=== PATIENT | female | born 1975 | race Caucasian/White ===

== ENCOUNTER 2022-02-07 11:32 | Inpatient (IN) | payer BC, OTHER ==
[~2022-02-07] VITALS: Ht 175.3 cm; Wt 72.4 kg
[2022-02-07] MEDS ORDERED: ENOXAPARIN SOD 100 MG/1 ML SYRINGE SC ONE (12:30)
[2022-02-07 13:24] LABS: Basophils # (auto) 0.1 10 ^3/uL (0-0.2); Eosinophils # (auto) 0.3 10 ^3/uL (0-0.8); Eosinophils % (auto) 2.5 % (0.0-7.0); Lymphocytes # (auto) 1.3 10 ^3/uL (0.4-5.4); Monocytes # (auto) 0.6 10 ^3/uL (0-1.3); Red Cell Distribution Width 18.3 % (11.8-14.3)
[2022-02-07 13:26] LABS: Hematocrit 27.9 % (36.0-46.0); Hemoglobin 8.7 g/dL (12.2-16.2); Mean Corpuscular Hemoglobin 21.1 pg (28.0-32.0); Mean Corpuscular Volume 68.2 fL (80.0-100.0); Monocytes % (auto) 5.6 % (0.0-12.0); Neutrophils # (auto) 7.9 10 ^3/uL (1.6-8.6); Neutrophils % (auto) 77.9 % (37.0-80.0); Red Blood Cells 4.09 10^6/uL (4.0-5.20); White Blood Cell 10.1 10^3/uL (4.4-10.8)
[2022-02-07 13:36] LABS: Urine Bacteria NONE SEEN /hpf (None Seen); Urine Blood TRACE /uL (Negative); Urine Specific Gravity 1.007 (1.001-1.035); Urine WBC 10 /hpf (0 - 5)
[2022-02-07 13:51] LABS: BUN/Creatinine Ratio 14.8; Potassium 4.1 mmol/L (3.5-5.1)
[2022-02-07 13:54] LABS: Bilirubin, Total 0.1 mg/dL (0.2-1.0); Total Protein 7.7 g/dL (6.4-8.2)
[2022-02-07] MEDS ORDERED: IOHEXOL 350 MG/ML 100ML IJ ONE (14:24)
[2022-02-07] MEDS ORDERED: levoFLOXacin 500MG 100 ML IV ONE (17:15)
[2022-02-07] MEDS ORDERED: NITROGLYCERIN 0.4 MG SL TAB SL PRN (17:45)
[2022-02-07] MEDS ORDERED: MORPHINE SULFATE INJ 2 MG/ml SYRG IV PRN (17:45)
[2022-02-07] MEDS ORDERED: ONDANSETRON HCL 4 MG/2 ML VIAL IV PRN (17:45)
[2022-02-07] MEDS ORDERED: TRAM50TA2 PO (18:19)
[2022-02-07] MEDS ORDERED: GABA300C10 PO (18:19)
[2022-02-07 19:08] LABS: INR 0.97 (0.9-1.15)
[2022-02-07] MEDS ORDERED: CEFEPIME 1GM/ 50ML 50 ML IV SCH (22:00)
[2022-02-07 22:40] VITALS: BP 118/79
[2022-02-07] MEDS: traMADol HCL 50 MG TAB PO PRN (22:41)
[2022-02-07] MEDS: ENOXAPARIN SOD 80 MG/0.8ML SYRINGE SC SCH (22:41)
[2022-02-07] MEDS: GABAPENTIN 300 MG CAP PO SCH (22:41)
[2022-02-08] MEDS: traMADol HCL 50 MG TAB PO PRN (06:04)
[2022-02-08] MEDS: GABAPENTIN 300 MG CAP PO SCH ×3 (06:04→21:56)
[2022-02-08 06:56] LABS: Basophils # (auto) 0.1 10 ^3/uL (0-0.2); Eosinophils # (auto) 0.5 10 ^3/uL (0-0.8); Hematocrit 27.4 % (36.0-46.0); Lymphocytes # (auto) 1.6 10 ^3/uL (0.4-5.4); Monocytes # (auto) 0.7 10 ^3/uL (0-1.3); Monocytes % (auto) 7.8 % (0.0-12.0)
[2022-02-08 07:01] LABS: Basophils % (auto) 0.8 % (0.0-2.0); Eosinophils % (auto) 5.7 % (0.0-7.0); Hemoglobin 8.5 g/dL (12.2-16.2); Lymphocytes % (auto) 17.4 % (10.0-50.0); Mean Corpuscular Hemoglobin 21.1 pg (28.0-32.0); Mean Corpuscular Volume 68.1 fL (80.0-100.0); Neutrophils # (auto) 6.2 10 ^3/uL (1.6-8.6); Neutrophils % (auto) 68.3 % (37.0-80.0); Red Blood Cells 4.01 10^6/uL (4.0-5.20); Red Cell Distribution Width 18.4 % (11.8-14.3); White Blood Cell 9.1 10^3/uL (4.4-10.8)
[2022-02-08 07:09] LABS: Albumin 3.6 g/dL (3.4-5.0); Calcium 8.7 mg/dL (8.5-10.1); Potassium 4.1 mmol/L (3.5-5.1)
[2022-02-08 07:13] LABS: BUN/Creatinine Ratio 13.6
[2022-02-08 07:15] LABS: Bilirubin, Total 0.2 mg/dL (0.2-1.0); Total Protein 7.2 g/dL (6.4-8.2)
[2022-02-08 09:00] VITALS: BP 119/62
[2022-02-08] MEDS: NICOTINE 7MG/24HR TOPICAL PATCH TD SCH ×2 (09:52→09:54)
[2022-02-08] MEDS: ENOXAPARIN SOD 80 MG/0.8ML SYRINGE SC SCH ×2 (09:52→21:56)
[2022-02-08] MEDS ORDERED: HYDROcodone-ACET 5/325MG TAB PO PRN (11:00)
[2022-02-08 13:00] VITALS: BP 121/67
[2022-02-08] MEDS ORDERED: DOCUSATE SOD 100 MG CAP PO ONE (13:00)
[2022-02-08] MEDS ORDERED: HYDROcodone-ACET 5/325MG TAB PO ONE (13:00)
[2022-02-08 17:00] VITALS: BP 107/64
[2022-02-08] MEDS ORDERED: HYDROcodone-ACET 10/325MG TAB PO PRN (19:00)
[2022-02-08] MEDS: DOCUSATE SOD 100 MG CAP PO SCH (21:56)
[2022-02-08 22:00] VITALS: BP 104/61
[2022-02-09] MEDS ORDERED: HYDROcodone-ACET 5/325MG TAB PO PRN (00:15)
[2022-02-09 05:00] VITALS: BP 98/64
[2022-02-09] MEDS: GABAPENTIN 300 MG CAP PO SCH (05:34)
[2022-02-09 09:00] VITALS: BP 104/73
[2022-02-09] MEDS: NICOTINE 7MG/24HR TOPICAL PATCH TD SCH (10:00)
[2022-02-09] MEDS: DOCUSATE SOD 100 MG CAP PO SCH (10:00)
[2022-02-09] MEDS: ENOXAPARIN SOD 80 MG/0.8ML SYRINGE SC SCH (10:06)
[2022-02-09] MEDS ORDERED: APIX5TAB PO (11:00)
== END 2022-02-09 11:55 | disposition home or self-care (01) | DRG 299 ==
LOC: ER 11:45 → TELE 17:42 → TELE-EAST 22:13
PROVIDERS: ADMIT Registered Nurse; ATTEND Internal Medicine Pulmonary Disease
DX: I82.431 Acute embolism and thrombosis of right popliteal vein (principal); I26.99 Other pulmonary embolism without acute cor pulmonale; N39.0 Urinary tract infection, site not specified; K59.00 Constipation, unspecified; D75.838 Other thrombocytosis; D50.9 Iron deficiency anemia, unspecified; F17.200 Nicotine dependence, unspecified, uncomplicated; Z20.822 Contact with and (suspected) exposure to COVID-19; F12.90 Cannabis use, unspecified, uncomplicated; Z82.3 Family history of stroke; Z71.6 Tobacco abuse counseling; Z88.0 Allergy status to penicillin
CPT/HCPCS: 36415; 71275; 80053; 81001; 85025; 85379; 85610; 87086; 93005; 93971; 96365; 96372; 96375; G0378; J1956; J2405